=== PATIENT | female | born 1970 | race Caucasian/White ===

== ENCOUNTER 2016-03-22 08:14 | Emergency (ER) | payer MEDICAID ==
[~2016-03-22] VITALS: Ht 154.9 cm; Wt 77.1 kg
[~2016-03-22 08:14] MED LIST: IMITREX50 MG PO
[2016-03-22 08:20] VITALS: BP 118/73
--- NOTE | 2016-03-22 08:25 | NUR ---
Pt ambulated to bed 7.
--- NOTE | 2016-03-22 08:26 | NUR ---
45/F presents to ED for evaluation of right ankle pain s/p trip and fall this morning. Pt c/o 8/10 pain, aching, non radiating, constant. Patient ambulating with a limp to right side. Pt has swelling to right ankle, cms intact. Patient is AOX4, fijian speaking, family at bedside. VSS.
--- NOTE | 2016-03-22 08:27 | NUR ---
Dr. Medina evaluating patient at bedside.
[2016-03-22] MEDS ORDERED: IBUPROFEN 800 MG TAB PO ONE (08:30)
--- NOTE | 2016-03-22 08:32 | NUR ---
Patient taken to x-ray via w/c.
--- NOTE | 2016-03-22 08:45 | NUR ---
PATIENT BACK FROM XR VIA W/C
--- NOTE | 2016-03-22 08:56 | NUR ---
Dr. Medina re-evaluating patient at bedside.
[2016-03-22 09:20] VITALS: BP 123/79
--- NOTE | 2016-03-22 09:21 | NUR ---
amb. with crutches without difficulty/with family
--- NOTE | 2016-03-22 09:21 | NUR ---
Chart checked and completed. The patient's care was reviewed and supervised by Albina Jacome RN.
== END 2016-03-22 09:21 | disposition home or self-care (01) ==
LOC: MED 08:24
DX: S93.401A Sprain of unspecified ligament of right ankle, initial encounter (principal); X50.1XXA Overexertion from prolonged static or awkward postures, initial encounter; Y93.89 Activity, other specified; Y92.89 Other specified places as the place of occurrence of the external cause; Y99.8 Other external cause status

== ENCOUNTER 2016-08-19 21:12 | Emergency (ER) | payer MEDICAID ==
[~2016-08-19] VITALS: Ht 152.4 cm; Wt 81.6 kg
[2016-08-19 21:21] VITALS: BP 121/75
--- NOTE | 2016-08-19 21:36 | NUR ---
PT TAKEN TO XRAY FROM THE LOBBY
--- NOTE | 2016-08-19 21:47 | NUR ---
PT TAKEN TO BED 5
--- NOTE | 2016-08-19 21:50 | NUR ---
PATIENT PRESENTS TO ED WITH c/o sob . PT DENIES N/V/D; SKIN IS PINK/WARM/DRY; AAOX4 WITH EVEN AND STEADY GAIT; LUNGS CLEAR BL; HR EVEN AND REGULAR; PT DENIES ANY FEVER, CP, OR COUGH AT THIS TIME; PATIENT STATES PAIN OF 0/10 AT THIS TIME; VSS; PATIENT POSITIONED FOR COMFORT; HOB ELEVATED; BEDRAILS UP X2; BED DOWN. ER MD MADE AWARE OF PT STATUS.
--- NOTE | 2016-08-19 21:58 | NUR ---
Dr. Medina evaluating patient at bedside.
[2016-08-19] MEDS ORDERED: ALBUTEROL SULFATE/IPRATROPIU 3 ML SOL IH ONE (22:05)
--- NOTE | 2016-08-19 22:08 | NUR ---
Respiratory Therapist at bedside for respiratory intervention. Patient tolerated .
--- NOTE | 2016-08-19 22:38 | NUR ---
Patient discharged with v/s stable. Written and verbal after care instructions given and explained. Patient alert, oriented and verbalized understanding of instructions. Ambulatory with steady gait. All questions addressed prior to discharge. ID band removed. Patient advised to follow up with PMD. Rx of albuterol inhaler and motrin given. Patient educated on indication of medication including possible reaction and side effects. Opportunity to ask questions provided and answered.
[2016-08-19 22:39] VITALS: BP 121/75
== END 2016-08-19 22:38 | disposition home or self-care (01) ==
LOC: MED 21:12
DX: S29.011A Strain of muscle and tendon of front wall of thorax, initial encounter (principal); J45.909 Unspecified asthma, uncomplicated; X58.XXXA Exposure to other specified factors, initial encounter; Y93.89 Activity, other specified; Y92.89 Other specified places as the place of occurrence of the external cause; Y99.8 Other external cause status
CPT/HCPCS: 71010; 93005; 94640; 99284; J7620

== ENCOUNTER 2016-08-25 14:25 | Emergency (ER) | payer MEDICAID ==
[~2016-08-25] VITALS: Ht 152.4 cm; Wt 82.2 kg
[2016-08-25 14:44] VITALS: BP 131/66
--- NOTE | 2016-08-25 16:40 | NUR ---
PT TO BED 8.
--- NOTE | 2016-08-25 16:41 | NUR ---
45/F BIB DAUGHTER HERE FOR RIGHT SIDED ENRIQUE X 3 DAYS WITH RIGHT SIDED FACIAL NUMBNESS X TODAY. HX: ASTHMA, MIGRAINES. RX: ALBUTEROL SULFATE. DENIES ANY DIZZINESS OR N/V.
[2016-08-25] MEDS ORDERED: KETOROLAC 60 MG/2 ML VIAL IM ONE (17:35)
[2016-08-25 18:55] VITALS: BP 132/68
--- NOTE | 2016-08-25 18:55 | NUR ---
Patient discharged with v/s stable. Written and verbal after care instructions given and explained. Patient alert, oriented and verbalized understanding of instructions. Ambulatory with steady gait. All questions addressed prior to discharge. ID band removed. Patient advised to follow up with PMD. Rx of NORCO AND MOTRIN given. Patient educated on indication of medication including possible reaction and side effects. Opportunity to ask questions provided and answered.
== END 2016-08-25 18:31 | disposition home or self-care (01) ==
LOC: MED 14:42
DX: R51 Headache (principal); J45.909 Unspecified asthma, uncomplicated
CPT/HCPCS: 81002; 81025; 96372; 99283; J1885

== ENCOUNTER 2016-12-13 15:10 | Emergency (ER) | payer MEDICAID ==
[~2016-12-13] VITALS: Ht 149.9 cm; Wt 79.8 kg
[2016-12-13 15:17] VITALS: BP 129/74
--- NOTE | 2016-12-13 16:16 | NUR ---
PATIENT TO BED 6 AT THIS TIME.
--- NOTE | 2016-12-13 16:18 | NUR ---
PT PRESENTS TO ER W/C/O LABD PAIN & COUGH & SORE THROAT & MID UPPER CHEST PAIN X THIS MORNING. HX ASTHMA.DENIES N/V/D; SKIN IS PINK/WARM/DRY; AAOX4 WITH EVEN AND STEADY GAIT; LUNGS CLEAR BL; PATIENT STATES PAIN OF 7/10 AT THIS TIME; PATIENT POSITIONED FOR COMFORT; HOB ELEVATED; BEDRAILS UP X2; BED DOWN. ER MD MADE AWARE OF PT STATUS.
--- NOTE | 2016-12-13 16:55 | NUR ---
LAB AT BEDSIDE.
[2016-12-13 17:05] LABS: BASOPHILS # (AUTO) 0.1 K/uL (0.00-0.22); EOSINOPHILS # (AUTO) 0.1 K/uL (0-0.4); EOSINOPHILS % (AUTO) 1.2 % (0.0-4.0); NEUTROPHILS # (AUTO) 7.5 K/uL (1.8-7.7); WHITE BLOOD COUNT (AUTO) 8.9 K/uL (4.8-10.8)
[2016-12-13 17:09] LABS: BASOPHILS % (AUTO) 1.2 % (0.0-2.0); HEMATOCRIT 39.1 % (36-48); HEMOGLOBIN 13.3 g/dL (12.0-16.0); LYMPHOCYTES # (AUTO) 0.6 K/uL (2.5-16.5); LYMPHOCYTES % (AUTO) 7.1 % (20.5-51.1); MEAN CORPUSCULAR HEMOGLOBIN 29 pg (27-31); MEAN CORPUSCULAR HGB CONC 34 g/dL (33-37); MEAN CORPUSCULAR VOLUME 85 fL (80-94); MONOCYTES # (AUTO) 0.6 K/uL (0.8-1.0); NEUTROPHILS % (AUTO) 83.5 % (42.2-75.2); PLATELET COUNT (AUTO) 209 K/uL (140-450); RED BLOOD CELL COUNT(AUTO) 4.61 MIL/uL (4.20-5.40); RED CELL DISTRIBUTION WIDTH 12.8 % (11.6-13.7)
[2016-12-13 17:19] LABS: ANION GAP 13.9 (8-16); CARBON DIOXIDE 25.5 mmol/L (21-32); CREATININE 0.7 mg/dL (0.6-1.3); POTASSIUM 3.4 mmol/L (3.5-5.1)
[2016-12-13 17:25] LABS: ALBUMIN 3.9 g/dL (3.4-5.0); TOTAL BILIRUBIN 0.3 mg/dL (0.0-1.0)
[2016-12-13] MEDS ORDERED: ALBUTEROL SULFATE/IPRATROPIU 3 ML SOL IH ONE (17:50)
[2016-12-13] MEDS ORDERED: predniSONE 20 MG TAB PO STA (17:50)
--- NOTE | 2016-12-13 18:37 | NUR ---
ER MD DR. BARBER REEVALUATING PT AT BEDSIDE.
[2016-12-13 18:45] VITALS: BP 120/76
--- NOTE | 2016-12-13 18:45 | NUR ---
Patient discharged with v/s stable. Written and verbal after care instructions given and explained. Patient alert, oriented and verbalized understanding of instructions. Ambulatory with steady gait. All questions addressed prior to discharge. ID band removed. Patient advised to follow up with PMD. Rx of PREDNISONE, ALBUTEROL & MUCINEX given. Patient educated on indication of medication including possible reaction and side effects. Opportunity to ask questions provided and answered.
== END 2016-12-13 18:45 | disposition home or self-care (01) ==
LOC: MED 15:10
DX: J45.909 Unspecified asthma, uncomplicated (principal); R10.30 Lower abdominal pain, unspecified
CPT/HCPCS: 36415; 71010; 80053; 84484; 85025; 85379; 85610; 85730; 93005; 94640; 99285; J7512; J7620; Q0092

== ENCOUNTER 2017-03-26 09:03 | Emergency (ER) | payer MEDICAID ==
[~2017-03-26] VITALS: Ht 152.4 cm; Wt 79.9 kg
[2017-03-26 09:17] VITALS: BP 120/77
--- NOTE | 2017-03-26 09:24 | NUR ---
PATIENT AMBULATED TO BED 3 AT THIS TIME.
--- NOTE | 2017-03-26 09:27 | NUR ---
46F BIB SELF C/O PRODUCTIVE COUGH WITH WHITE PHLEGM X 4 DAYS; BL LUNG SOUNDS CLEAR, RR EVEN/UNLABORED, EQUAL RISE/FALL OF CHEST NOTED AT THIS TIME; PT C/O ANTERIOR CHEST WALL PRESSURE WITH COUGHING, NON-RADIATING, 6/10 X 4 DAYS; PT AA&OX4, STATES NO N/V/D AT THIS TIME; SKIN IS WARM/DRY/INTACT WITH EVEN AND STEADY GAIT; PT RESTING IN BED WITH HOB ELEVATED AND IN LOWEST POSITION; POSITIONED FOR COMFORT; ER MD MADE AWARE OF STATUS. WILL CONTINUE TO MONITOR.
[2017-03-26] MEDS ORDERED: IPRATROPIUM 0.02% 0.5 MG/2.5 ML NEBU INH ONE (09:35)
[2017-03-26] MEDS ORDERED: ALBUTEROL 0.083% 2.5 MG/3 ML NEBU INH ONE (09:35)
--- NOTE | 2017-03-26 09:41 | NUR ---
XRAY AT BEDSIDE.
--- NOTE | 2017-03-26 09:47 | NUR ---
RT AT BEDSIDE FOR BREATHING TX.
--- NOTE | 2017-03-26 10:59 | NUR ---
BISMARK LIZARRAGA AT BEDSIDE.
[2017-03-26] MEDS ORDERED: HYDROcodone/APAP 5/325 MG 1 TAB TAB PO ONE (11:00)
--- NOTE | 2017-03-26 11:15 | NUR ---
LAB AT BEDSIDE.
[2017-03-26 11:35] LABS: HEMATOCRIT 39.1 % (36-48); HEMOGLOBIN 12.9 g/dL (12.0-16.0); MEAN CORPUSCULAR HEMOGLOBIN 28 pg (27-31); MEAN CORPUSCULAR HGB CONC 33 g/dL (33-37); MEAN CORPUSCULAR VOLUME 86 fL (80-94); PLATELET COUNT (AUTO) 216 K/uL (140-450); RED BLOOD CELL COUNT(AUTO) 4.56 MIL/uL (4.20-5.40); RED CELL DISTRIBUTION WIDTH 12.6 % (11.6-13.7); WHITE BLOOD COUNT (AUTO) 6.9 K/uL (4.8-10.8)
[2017-03-26 11:49] LABS: EOSINOPHILS % (MANUAL) 1 % (0-4); LYMPHOCYTES % (MANUAL) 20 % (20-46); MONOCYTES % (MANUAL) 5 % (5-12)
[2017-03-26 11:50] LABS: ANION GAP 11.6 (8-16); CARBON DIOXIDE 26.9 mmol/L (21-32); CREATININE 0.7 mg/dL (0.6-1.3); POTASSIUM 3.5 mmol/L (3.5-5.1)
[2017-03-26 11:56] LABS: ALBUMIN 3.7 g/dL (3.4-5.0); TOTAL BILIRUBIN 0.2 mg/dL (0.0-1.0)
--- NOTE | 2017-03-26 11:58 | NUR ---
PT APPEARS TO BE RESTING COMFORTABLY IN BED; RR EVEN/UNLABORED; POSITIONED FOR COMFORT; WILL CONTINUE TO MONITOR.
[2017-03-26 12:29] VITALS: BP 138/84
--- NOTE | 2017-03-26 12:29 | NUR ---
Patient discharged with v/s stable. Written and verbal after care instructions given and explained. Patient alert, oriented and verbalized understanding of instructions. Ambulatory with steady gait. All questions addressed prior to discharge. ID band removed. Patient advised to follow up with PMD. Rx of Promethazine given. Patient educated on indication of medication including possible reaction and side effects. Opportunity to ask questions provided and answered.
== END 2017-03-26 12:29 | disposition home or self-care (01) ==
LOC: MED 09:03
DX: J06.9 Acute upper respiratory infection, unspecified (principal); R07.89 Other chest pain; R05 Cough; J45.909 Unspecified asthma, uncomplicated; Z90.710 Acquired absence of both cervix and uterus
CPT/HCPCS: 36415; 71045; 80053; 81002; 81025; 84484; 85025; 85379; 93005; 94640; 99285; J7613; J7644; Q0092

== ENCOUNTER 2017-08-04 10:12 | Emergency (ER) | payer MEDICAID ==
[~2017-08-04] VITALS: Ht 152.4 cm; Wt 77.6 kg
[2017-08-04 10:26] VITALS: BP 130/83
--- NOTE | 2017-08-04 10:30 | NUR ---
PT TAKEN TO BED 11. REPORT GIVEN TO MIGUEL DENT.
[2017-08-04] MEDS ORDERED: ALBUTEROL SULFATE/IPRATROPIU 3 ML SOL IH ONE (10:35)
--- NOTE | 2017-08-04 10:41 | NUR ---
PATIENT TAKEN TO ER BED 11
[2017-08-04] MEDS ORDERED: predniSONE 20 MG TAB PO ONE (10:50)
[2017-08-04] MEDS ORDERED: ACETAMINOPHEN EXTRA STRENGTH 500 MG TAB PO ONE (10:50)
--- NOTE | 2017-08-04 10:50 | NUR ---
46 YO F BIB SELF W/ C/O SOB X1.5 WEEKS WITH CHEST PRESSURE, WORSE AT NIGHT; RR EVEN AND UNLABORED, LUNGS BILATERALLY CLEAR. DENIES COUGH AT THIS TIME. DENIES N/V/D/FEVER/CHILLS AT THIS TIME. AAOX4. GCS 15. CMS INTACT. ABD SOFT, NON-TENDER. NO SIGNS OF ACUTE RESPIRATORY DISTRESS. PT SPEAKING IN FULL, APPROPRIATE, COMPLETE SENTENCES. PT CALM AND RELAXED. ER MD DIAZ NOTIFIED. PT NEEDS MET. SAFETY PRECAUTIONS IN PLACE. WILL CONTINUE TO MONITOR.
--- NOTE | 2017-08-04 11:00 | NUR ---
RT AT BEDSIDE AT THIS TIME.
[2017-08-04 11:03] LABS: BASOPHILS % (AUTO) 0.6 % (0.0-2.0); EOSINOPHILS # (AUTO) 0.1 K/uL (0-0.4); EOSINOPHILS % (AUTO) 2.6 % (0.0-4.0); HEMATOCRIT 39.1 % (36-48); HEMOGLOBIN 12.9 g/dL (12.0-16.0); LYMPHOCYTES # (AUTO) 1.5 K/uL (2.5-16.5); LYMPHOCYTES % (AUTO) 28.6 % (20.5-51.1); MEAN CORPUSCULAR HEMOGLOBIN 29 pg (27-31); MEAN CORPUSCULAR HGB CONC 33 g/dL (33-37); MEAN CORPUSCULAR VOLUME 86.4 fL (80-94); MONOCYTES # (AUTO) 0.4 K/uL (0.8-1.0); MONOCYTES % (AUTO) 6.8 % (1.7-9.3); NEUTROPHILS # (AUTO) 3.3 K/uL (1.8-7.7); NEUTROPHILS % (AUTO) 61.4 % (42.2-75.2); PLATELET COUNT (AUTO) 226 K/uL (140-450); RED BLOOD CELL COUNT(AUTO) 4.52 MIL/uL (4.20-5.40); RED CELL DISTRIBUTION WIDTH 13.3 % (11.6-13.7); WHITE BLOOD COUNT (AUTO) 5.3 K/uL (4.8-10.8)
[2017-08-04 11:16] LABS: ANION GAP 11.7 (8-16); CREATININE 0.8 mg/dL (0.6-1.3); POTASSIUM 3.7 mmol/L (3.5-5.1)
[2017-08-04 11:21] LABS: ALBUMIN 3.7 g/dL (3.4-5.0); TOTAL BILIRUBIN 0.4 mg/dL (0.0-1.0)
--- NOTE | 2017-08-04 12:16 | NUR ---
Pt resting comfortably in [facility] at this time. VSS. Safety precautions in place. Pt needs met. Will continue to monitor.
[2017-08-04 13:26] VITALS: BP 135/69
--- NOTE | 2017-08-04 13:26 | NUR ---
Patient discharged with v/s stable. Written and verbal after care instructions given and explained. Patient alert, oriented and verbalized understanding of instructions. Ambulatory with steady gait. All questions addressed prior to discharge. ID band removed. Patient advised to follow up with PMD. Rx of Prednisone and Albuterol given. Patient educated on indication of medication including possible reaction and side effects. Opportunity to ask questions provided and answered.
== END 2017-08-04 13:26 | disposition home or self-care (01) ==
LOC: MED 10:12
DX: J45.901 Unspecified asthma with (acute) exacerbation (principal); Z90.710 Acquired absence of both cervix and uterus
CPT/HCPCS: 36415; 71045; 80053; 84484; 85025; 93005; 94640; 99285; J7512; J7620

== ENCOUNTER 2017-11-05 08:10 | Emergency (ER) | payer MEDICAID ==
[~2017-11-05] VITALS: Ht 152.4 cm; Wt 77.1 kg
[2017-11-05 08:23] VITALS: BP 133/78
[2017-11-05] MEDS ORDERED: KETOROLAC 60 MG/2 ML VIAL IM ONE (08:30)
--- NOTE | 2017-11-05 08:57 | NUR ---
PT IS LAYING IN BED, RR EVEN AND UNLABORED. SAFETY PRECAUTIONS IMPLEMENTED AT THIS TIME. PROVIDED WITH A BLANKET. VSS.
[2017-11-05 09:31] VITALS: BP 130/76
--- NOTE | 2017-11-05 09:31 | NUR ---
Patient discharged with v/s stable. Written and verbal after care instructions given and explained. Patient alert, oriented and verbalized understanding of instructions. Ambulatory with steady gait. All questions addressed prior to discharge. ID band removed. Patient advised to follow up with PMD. Rx of tylenol extra strength 500mg, ibuprofen 800mg given. Patient educated on indication of medication including possible reaction and side effects. Opportunity to ask questions provided and answered.
== END 2017-11-05 09:31 | disposition home or self-care (01) ==
LOC: MED 08:10
DX: S70.02XA Contusion of left hip, initial encounter (principal); S50.02XA Contusion of left elbow, initial encounter; J45.909 Unspecified asthma, uncomplicated; Z90.710 Acquired absence of both cervix and uterus; W18.39XA Other fall on same level, initial encounter; Y93.89 Activity, other specified; Y92.89 Other specified places as the place of occurrence of the external cause; Y99.8 Other external cause status
CPT/HCPCS: 73080; 73502; 81002; 81025; 96372; 99284; J1885

== ENCOUNTER 2018-10-26 15:49 | Emergency (ER) | payer MEDICAID ==
[~2018-10-26] VITALS: Ht 165.1 cm; Wt 63.5 kg
[2018-10-26 15:54] VITALS: BP 141/68
--- NOTE | 2018-10-26 15:56 | NUR ---
URINE CUP HANDED TO PT FOR SAMPLE
--- NOTE | 2018-10-26 16:33 | NUR ---
C/O LOWER BACK PAIN RADIATING TO PELVIC AREA X 1 WK. PAIN 8/10. PT ADMITS TO FREQUENCY. DENIES DYURIA. URINE YELLOW, NO ODOR PRESENT. VSS. AA0X4. BED IS DOWN, LOCKED, BED RAIL X 1, ERMD TO SEE PT HX--ASTHMA RX---ALBUTEROL
--- NOTE | 2018-10-26 16:55 | NUR ---
DR MÉNDEZ AT BEDSIDE
--- NOTE | 2018-10-26 17:09 | NUR ---
PT BEING TAKEN TO CT VIA WHEELCHAIR
[2018-10-26 18:43] VITALS: BP 133/67
--- NOTE | 2018-10-26 18:45 | NUR ---
Patient discharged with v/s stable. Written and verbal after care instructions given and explained. Patient alert, oriented and verbalized understanding of instructions. Ambulatory with steady gait. All questions addressed prior to discharge. ID band removed. Patient advised to follow up with PMD. Rx of acetaminophen, motrin given. Patient educated on indication of medication including possible reaction and side effects. Opportunity to ask questions provided and answered.
== END 2018-10-26 18:45 | disposition home or self-care (01) ==
LOC: MED 15:49
DX: R10.31 Right lower quadrant pain (principal); M54.5 Low back pain; J45.909 Unspecified asthma, uncomplicated
CPT/HCPCS: 81002; 81025; 99284

== ENCOUNTER 2019-02-20 16:06 | Emergency (ER) | payer MEDICAID ==
[~2019-02-20] VITALS: Ht 124.5 cm; Wt 73.5 kg
[2019-02-20 16:16] VITALS: BP 138/93
--- NOTE | 2019-02-20 16:29 | NUR ---
PT AMBULATED TO BED 4.
--- NOTE | 2019-02-20 16:45 | NUR ---
48 Y/O F C/O HEADACHE 7/ WITH VOMITING X1 DAY. PT DENIES FEVER/DIAHREA. NEUROLOGICAL EXAM SHOWS PERRLA LESS THAN 3. ENRIQUE IS ABOVE THE RIGHT EYE, TEMPORAL AREA. PT UNABLE TO EAT OR DRINK WITHOUT VOMITING TODAY. DENIES BLURY VISSION. TOOK OVER THE COUNTER MEDICATION AT HOME FOR PAIN, HAS NOT HELPED. PT ON MONITOR, VS STABLE. BED LOWERED, SIDE RAIL X1 IN PLACE. NKA
[2019-02-20] MEDS ORDERED: KETOROLAC 30 MG/ML VIAL IM ONE (17:05)
[2019-02-20] MEDS ORDERED: PROCHLORPERAZINE 10 MG/2 ML VIAL IM ONE (17:05)
[2019-02-20] MEDS ORDERED: KETOROLAC 30 MG/ML VIAL IVP ONE (17:15)
[2019-02-20] MEDS ORDERED: PROCHLORPERAZINE 10 MG/2 ML VIAL IVP ONE (17:15)
[2019-02-20] MEDS ORDERED: NACL 0.9% 1,000 ML IV SCH (17:48)
--- NOTE | 2019-02-20 18:31 | NUR ---
PT RESTING COMFORTABLY, VS STABLE. NACL RUNNING WITHOUT DIFFICULTY IN PTS LT AC 20 G IV.
[2019-02-20 18:42] VITALS: BP 140/80
--- NOTE | 2019-02-20 18:42 | NUR ---
Patient discharged with v/s stable. Written and verbal after care instructions given and explained. Patient verbalized understanding. Ambulatory with steady gait. All questions addressed prior to discharge. Advised to follow up with PMD.
== END 2019-02-20 18:42 | disposition home or self-care (01) ==
LOC: MED 16:06
DX: G43.909 Migraine, unspecified, not intractable, without status migrainosus (principal); J45.909 Unspecified asthma, uncomplicated
CPT/HCPCS: 81002; 81025; 96374; 96375; 99283; J0780; J1885; J7030; 96361

== ENCOUNTER 2019-03-24 11:35 | Emergency (ER) | payer MEDICAID ==
[~2019-03-24] VITALS: Ht 152.4 cm; Wt 77.1 kg
[2019-03-24 11:50] VITALS: BP 120/70
--- NOTE | 2019-03-24 11:53 | NUR ---
WAIT AT LOBBY.
--- NOTE | 2019-03-24 14:15 | NUR ---
48 Y/O FEMALE PRESENTS WITH RIGHT ARM PAIN S/P FALLING A WEEK AND A HALF AGO WHEN MOPPING. PT DENIES HEAD INJURY/LOC. CMS+ IN BUE. NO OBVIOUS DEFORMITY NOTED IN BILAT UPPER EXTR. PATIENT HAS BEEN SELF MEDICATING WITH TYLENOL, BUT PAIN IS NOT GOING AWAY. RIGHT ELBOW IS TENDER. NO ECCHYMOSIS/SWELLING NOTED. SKIN INTACT. AAOX4. PMH: ASTHMA NKA
[2019-03-24] MEDS ORDERED: KETOROLAC 30 MG/ML VIAL IM ONE (14:40)
[2019-03-24 17:44] VITALS: BP 132/76
--- NOTE | 2019-03-24 17:44 | NUR ---
Patient discharged with v/s stable. Written and verbal after care instructions given and explained. Patient alert, oriented and verbalized understanding of instructions. Ambulatory with steady gait. All questions addressed prior to discharge. ID band removed. Patient advised to follow up with PMD. Rx of FLEXIRIL, NAPROSYN given. Patient educated on indication of medication including possible reaction and side effects. Opportunity to ask questions provided and answered.
== END 2019-03-24 17:44 | disposition home or self-care (01) ==
LOC: MED 11:35
DX: S63.501A Unspecified sprain of right wrist, initial encounter (principal); J45.909 Unspecified asthma, uncomplicated; W19.XXXA Unspecified fall, initial encounter; Y93.89 Activity, other specified; Y92.89 Other specified places as the place of occurrence of the external cause; Y99.8 Other external cause status
CPT/HCPCS: 29125; 73030; 73080; 73110; 96372; 99284; J1885; Q0092

== ENCOUNTER 2019-09-10 09:50 | Emergency (ER) | payer MEDICAID ==
[~2019-09-10] VITALS: Ht 152.4 cm; Wt 77.1 kg
[2019-09-10 09:55] VITALS: BP 124/73
[2019-09-10] MEDS ORDERED: KETOROLAC 30 MG/ML VIAL IM ONE (10:50)
[2019-09-10 11:07] LABS: BASOPHILS % (AUTO) 0.6 % (0.0-2.0); EOSINOPHILS # (AUTO) 0.1 K/uL (0-0.4); EOSINOPHILS % (AUTO) 1.4 % (0.0-4.0); HEMATOCRIT 37.9 % (36-48); HEMOGLOBIN 12.6 g/dL (12.0-16.0); LYMPHOCYTES # (AUTO) 1.1 K/uL (2.5-16.5); LYMPHOCYTES % (AUTO) 19.8 % (20.5-51.1); MEAN CORPUSCULAR HEMOGLOBIN 30 pg (27-31); MEAN CORPUSCULAR HGB CONC 33 g/dL (33-37); MEAN CORPUSCULAR VOLUME 88.7 fL (80-94); MONOCYTES # (AUTO) 0.4 K/uL (0.8-1.0); MONOCYTES % (AUTO) 7.5 % (1.7-9.3); NEUTROPHILS # (AUTO) 3.9 K/uL (1.8-7.7); NEUTROPHILS % (AUTO) 70.7 % (42.2-75.2); PLATELET COUNT (AUTO) 198 K/uL (140-450); RED BLOOD CELL COUNT(AUTO) 4.27 MIL/uL (4.20-5.40); RED CELL DISTRIBUTION WIDTH 13.3 % (11.6-13.7); WHITE BLOOD COUNT (AUTO) 5.5 K/uL (4.8-10.8)
[2019-09-10 11:14] LABS: ANION GAP 10.1 (8-16); CARBON DIOXIDE 28.4 mmol/L (21-32); CREATININE 0.7 mg/dL (0.6-1.3); POTASSIUM 3.5 mmol/L (3.5-5.1)
[2019-09-10 14:16] VITALS: BP 122/72
== END 2019-09-10 14:16 | disposition home or self-care (01) ==
LOC: MED 09:50
DX: R10.32 Left lower quadrant pain (principal); J45.909 Unspecified asthma, uncomplicated
CPT/HCPCS: 36415; 74176; 80048; 81002; 85025; 96372; 99284; J1885

== ENCOUNTER 2020-03-18 06:50 | Emergency (ER) | payer MEDICAID ==
[~2020-03-18] VITALS: Ht 152.4 cm; Wt 77.1 kg
[2020-03-18 06:55] VITALS: BP 129/76
--- NOTE | 2020-03-18 06:56 | NUR ---
to bed ambulatory
--- NOTE | 2020-03-18 07:05 | NUR ---
Lashay riggins in [facility] - 03/18/20 at 0705 by DALI PT TAKEN TO BED 4
[2020-03-18] MEDS ORDERED: NACL 0.9% 500 ML IV ONE (08:15)
[2020-03-18] MEDS ORDERED: KETOROLAC 30 MG/ML VIAL IVP ONE (08:15)
[2020-03-18 08:38] LABS: BILIRUBIN,URINE NEGATIVE (NEGATIVE); BLOOD, URINE TRACE-L (NEGATIVE); LEUKOCYTE ESTERASE ,URINE NEGATIVE (NEGATIVE); NITRITE, URINE POSITIVE (NEGATIVE); UGLUCOSE NEGATIVE (NEGATIVE)
[2020-03-18 09:12] LABS: RBC,URINE 0-5 /HPF (0-5); WBC,URINE 0-5 /HPF (0-5)
[2020-03-18 09:13] LABS: APPEARANCE,URINE CLEAR (CLEAR); COLOR,URINE YELLOW (YELLOW)
[2020-03-18 09:47] VITALS: BP 124/75
--- NOTE | 2020-03-18 09:49 | NUR ---
Patient discharged with v/s stable. Written and verbal after care instructions given and explained. Patient alert, oriented and verbalized understanding of instructions. Ambulatory with steady gait. All questions addressed prior to discharge. ID band removed. Patient advised to follow up with PMD. Rx of MOTRIN, BACTRIM given. Patient educated on indication of medication including possible reaction and side effects. Opportunity to ask questions provided and answered.
--- NOTE | 2020-03-19 19:19 | NUR ---
LATE ENTRY--- 0.9% NS DISCONTINUED AT 0900
== END 2020-03-18 09:49 | disposition home or self-care (01) ==
LOC: MED 06:50
DX: N39.0 Urinary tract infection, site not specified (principal); M54.5 Low back pain; R03.0 Elevated blood-pressure reading, without diagnosis of hypertension; J45.909 Unspecified asthma, uncomplicated; Z90.49 Acquired absence of other specified parts of digestive tract
CPT/HCPCS: 72100; 81001; 81025; 96374; 99284; J1885; J7030; 81002; 96361; 99285

== ENCOUNTER 2021-02-08 08:37 | Emergency (ER) | payer MEDICAID ==
[~2021-02-08] VITALS: Ht 142.2 cm; Wt 72.6 kg
[2021-02-08 09:04] VITALS: BP 118/78
--- NOTE | 2021-02-08 09:09 | NUR ---
PT GIVEN URINE CUP AND AMBULATED TO LOBBY
[2021-02-08] MEDS ORDERED: NITR100C7 PO (11:43)
[2021-02-08] MEDS ORDERED: NAPR-54 PO (11:43)
[2021-02-08 12:03] VITALS: BP 118/78
--- NOTE | 2021-02-08 12:03 | NUR ---
Patient discharged with v/s stable. Written and verbal after care instructions given FOR LOW BACK SPRAIN and explained. Patient alert, oriented and verbalized understanding of instructions. Ambulatory with steady gait. All questions addressed prior to discharge. ID band removed. Patient advised to follow up with PMD. Rx of MACROBID AND NAPROXEN given. Patient educated on indication of medication including possible reaction and side effects. Opportunity to ask questions provided and answered.
[2021-02-08 14:42] LABS: APPEARANCE,URINE CLEAR (CLEAR); BILIRUBIN,URINE NEGATIVE (NEGATIVE); BLOOD, URINE 1+ (NEGATIVE); COLOR,URINE YELLOW (YELLOW); LEUKOCYTE ESTERASE ,URINE NEGATIVE (NEGATIVE); NITRITE, URINE NEGATIVE (NEGATIVE); UGLUCOSE NEGATIVE (NEGATIVE)
[2021-02-08 15:16] LABS: RBC,URINE 0-5 /HPF (0-5); WBC,URINE NONE SEEN /HPF (0-5)
== END 2021-02-08 12:03 | disposition home or self-care (01) ==
LOC: MED 08:37
DX: N39.0 Urinary tract infection, site not specified (principal); M54.50 Low back pain, unspecified; J45.909 Unspecified asthma, uncomplicated; Z90.710 Acquired absence of both cervix and uterus; Z79.2 Long term (current) use of antibiotics; Z79.1 Long term (current) use of non-steroidal anti-inflammatories (NSAID)
CPT/HCPCS: 81001; 81025; 99283

== ENCOUNTER 2021-02-12 16:08 | Emergency (ER) | payer MEDICAID ==
[~2021-02-12] VITALS: Ht 152.4 cm; Wt 72.6 kg
[~2021-02-12 16:08] MED LIST changes: -IMITREX50 MG PO; +NAPR-54 PO; +NITR100C7 PO
[2021-02-12 16:42] VITALS: BP 137/82
[2021-02-12 18:53] LABS: BASOPHILS # (AUTO) 0.1 K/uL (0.00-0.22); BASOPHILS % (AUTO) 1.3 % (0.0-2.0); EOSINOPHILS # (AUTO) 0.1 K/uL (0-0.4); EOSINOPHILS % (AUTO) 1.6 % (0.0-4.0); HEMOGLOBIN 12.5 g/dL (12.0-16.0); LYMPHOCYTES # (AUTO) 1.6 K/uL (2.5-16.5); LYMPHOCYTES % (AUTO) 25.8 % (20.5-51.1); MEAN CORPUSCULAR HEMOGLOBIN 29 pg (27-31); MEAN CORPUSCULAR HGB CONC 34 g/dL (33-37); MEAN CORPUSCULAR VOLUME 87.2 fL (80-94); MONOCYTES # (AUTO) 0.4 K/uL (0.8-1.0); MONOCYTES % (AUTO) 7.2 % (1.7-9.3); NEUTROPHILS % (AUTO) 64.1 % (42.2-75.2); PLATELET COUNT (AUTO) 248 K/uL (140-450); RED BLOOD CELL COUNT(AUTO) 4.25 MIL/uL (4.20-5.40); RED CELL DISTRIBUTION WIDTH 13.7 % (11.6-13.7); WHITE BLOOD COUNT (AUTO) 6.2 K/uL (4.8-10.8)
[2021-02-12 19:22] LABS: ANION GAP 8.4 (8-16); CARBON DIOXIDE 29.2 mmol/L (21-32); CREATININE 0.7 mg/dL (0.6-1.3); POTASSIUM 3.6 mmol/L (3.5-5.1); TOTAL BILIRUBIN 0.2 mg/dL (0.0-1.0)
[2021-02-12] MEDS ORDERED: IBUP-2213 PO (19:57)
[2021-02-12] MEDS ORDERED: ACET-8386 PO (19:57)
[2021-02-12 20:13] VITALS: BP 137/82
[2021-02-12] MEDS: IBUPROFEN 600 MG TAB PO ONE (20:13)
== END 2021-02-12 20:14 | disposition home or self-care (01) ==
LOC: MED 16:08
DX: R35.0 Frequency of micturition (principal); J45.909 Unspecified asthma, uncomplicated
CPT/HCPCS: 80053; 81002; 83690; 85025; 99284